=== PATIENT | male | born 1945 | race Caucasian/White ===

== ENCOUNTER 2023-10-31 13:28 | Emergency (ER) | payer OTHER ==
[2023-10-31 14:37] LABS: Absolute Lymphocytes (CBC) 0.4 K/uL (0.7-4.9); Absolute Monocytes 1.4 K/uL (0.1-1.3); Absolute Neutrophil 6.4 K/uL (1.8-8.0); Basophils % 0.4 % (0-1.3); Eosinophils % 0.1 % (0-4.4); Hematocrit 45.1 % (39.6-49.0); Hemoglobin 14.7 g/dL (13.6-17.9); Lymphocytes % 5.2 % (15.3-44.8); MCH 29.6 pg (27.0-35.0); MCHC 32.6 g/dL (32.0-36.0); MCV 90.7 fL (80-100); MPV 8.1 fL (7.6-11.3); Monocytes % 16.7 % (3.3-12.3); Neutrophils % 77.6 % (41.7-73.7); Nucleated Red Blood Cells % 0.1 % (0-0); Platelets 160 thou/uL (152-406); RBC Red Blood Cell Count 4.97 M/uL (4.33-5.43); Red Cell Distribution Width 15.3 % (12.1-15.2)
[2023-10-31 14:53] LABS: Albumin 3.1 g/dL (3.4-5.0); Albumin/Globulin Ratio 0.8 (1.1-1.8); Anion Gap 7.4 mEq/L (5.0-15.0); Bilirubin Total 0.4 mg/dL (0.2-1.0); Potassium 4.4 mEq/L (3.5-5.1); Protein, Total 7.1 g/dL (6.4-8.2)
[2023-10-31 14:54] LABS: PTT, Activated Partial Thromb 31.1 SECONDS (24.3-36.9); Protime INR 1.19
--- NOTE | 2023-10-31 15:19 | RAD REPORT ---
EXAM DESCRIPTION: Ovidio Single View10/31/2023 2:45 pm CLINICAL HISTORY: Cough COMPARISON: 2011 FINDINGS: The lungs appear clear of acute infiltrate. The heart is mildly enlarged. Pacemaker leads in place IMPRESSION: No acute abnormalities displayed
[2023-10-31] MEDS ORDERED: LEVALBUTEROL 1.25 MG/3 ML NEB ONE (16:10)
[2023-10-31 16:19] LABS: SARS-CoV-2 Antigen CONTROL BLUE LINE VIS/BG OK
[2023-10-31 16:20] LABS: SARS-CoV-2 Antigen Rapid Res Positive (Negative)
--- NOTE | 2023-10-31 16:35 | ER ---
Nurse's Notes [facility] Name: Himanshu Hayward Age: 78 yrs Sex: Male : 1945 Arrival Date: 10/31/2023 Time: 13:28 Bed 6 Private MD: Diagnosis: SARS-associated coronavirus as the cause of diseases classified elsewhere;COPD/ Chronic obstructive pulmonary disease with (acute) exacerbation Presentation: 10/30 13:33 Chief complaint: Patient states: Cough, congestion, fever for 1 week. Sent by NH for ll1 further evaluation. Coronavirus screen: Client denies travel out of the [place] in the last 14 days. Ebola Screen: Patient denies travel to an Ebola-affected area in the 21 days before illness onset. Initial Sepsis Screen: Does the patient meet any 2 criteria? No. Patient's initial sepsis screen is negative. Does the patient have a suspected source of infection? No. Patient's initial sepsis screen is negative. Risk Assessment: Do you want to hurt yourself or someone else? Patient reports no desire to harm self or others. Onset of symptoms was October 26, 2023. 13:33 Method Of Arrival: Ambulatory 1 13:33 Acuity: SJ 3 ll1 Triage Assessment: 13:41 General: Appears uncomfortable, Behavior is calm, cooperative, appropriate for age. ll1 General: Reports fever for fatigue for. Pain: Complains of pain in chest Pain currently is 7 out of 10 on a pain scale. Quality of pain is described as aching. EENT: Reports nasal congestion. Respiratory: Reports cough that is pain with cough. Historical: - Allergies: 13:33 Rho(D) immune globulin; ll1 13:33 Celecoxib; ll1 - PMHx: 13:33 Hypercholesterolemia; Hypothyroidism; ll1 15:45 COPD; aa5 - Immunization history:: Adult Immunizations up to date. - Infectious Disease History:: Denies. - Social history:: Smoking status: Patient denies any tobacco usage or history of. - Family history:: not pertinent. - Hospitalizations: : No recent hospitalization is reported. Screenin:00 [facility] ED Fall Risk Assessment (Adult) History of falling in the last 3 months, aa5 including since admission No falls in past 3 months (0 pts) Confusion or Disorientation No (0 pts) Intoxicated or Sedated No (0 pts) Impaired Gait No (0 pts) Mobility Assist Device Used No (0 pt) Altered Elimination No (0 pt) Score/Fall Risk Level 0 - 2 = Low Risk Oriented to surroundings, Maintained a safe environment, Educated pt \T\ family on fall prevention, incl call for assistance when getting out of bed. Abuse screen: Denies threats or abuse. Nutritional screening: No deficits noted. Tuberculosis screening: No symptoms or risk factors identified. Assessment: 14:00 General: Appears comfortable, Behavior is calm, cooperative. Pain: Denies pain. Neuro: aa5 Level of Consciousness is awake, alert, obeys commands, Oriented to person, place, time, situation. Cardiovascular: Heart tones S1 S2 present Rhythm is regular. Respiratory: Reports shortness of breath and cough/congestion Airway is patent Respiratory effort is even, unlabored, Respiratory pattern is regular, symmetrical, Breath sounds are clear bilaterally. GI: Abdomen is round. : No signs and/or symptoms were reported regarding the genitourinary system. EENT: Hearing aids noted . Reports nasal congestion. Derm: Skin is pink, warm \T\ dry. Musculoskeletal: Range of motion: intact in all extremities. 15:45 Reassessment: Patient is alert, oriented x 3, equal unlabored respirations, skin aa5 warm/dry/pink. 15:46 Reassessment: MD was notified of lowered O2 sat and current O2 sat via 2 L NC. . aa5 16:15 Reassessment: Patient is alert, oriented x 3, equal unlabored respirations, skin aa5 warm/dry/pink. Vital Signs: 13:33 BP 144 / 58; Pulse 96; Resp 22; Temp 98; Pulse Ox 94% ; Weight 121.56 kg; Height 6 ft. ll1 0 in. ; Pain 7/10; 15:45 Pulse Ox 89% on R/A; aa5 15:46 Pulse Ox 96% on 2 lpm NC; aa5 17:00 BP 138 / 60; Pulse 84; Resp 20; Temp 97.9; Pulse Ox 92% on R/A; ph 13:33 Body Mass Index 36.35 (121.56 kg, 182.88 cm) ll1 13:33 Pain Scale: Adult ll1 ED Course: 13:30 Patient arrived in ED. mg5 13:32 Federico Laurent MD is Attending Physician. rn 13:33 Arm band placed on. ll1 13:37 Triage completed. ll1 14:14 Radha Soliz, RN is Primary Nurse. aa5 14:23 Inserted saline lock: 20 gauge in right antecubital area, using aseptic technique. aa5 14:25 Initial lab(s) drawn, by me, sent to lab. First set of blood cultures drawn by me. aa5 14:30 Patient has correct armband on for positive identification. Bed in low position. Call ph light in reach. Side rails up X2. Client placed on continuous cardiac and pulse oximetry monitoring. NIBP monitoring applied. monitoring tech on. Door closed. Noise minimized. Warm blanket given. 14:47 XRAY Chest (1 view) In Process Unspecified. EDMS 15:31 COVID swab sent to lab. Flu and/or RSV swab sent to lab. ll1 15:31 Second set of blood cultures drawn by ED staff. aa5 17:10 No provider procedures requiring assistance completed. IV discontinued, intact, ph bleeding controlled, No redness/swelling at site. Pressure dressing applied. Administered Medications: 16:15 Drug: Levalbuterol Inhalation 1.25 mg Inhalation once Route: Inhalation; aa5 16:30 Follow up: Response: No adverse reaction ph 16:57 Drug: MethylPrednisoLONE IVP 125 mg IVP once Route: IVP; Site: left antecubital; ph 17:10 Follow up: Response: No adverse reaction; Medication administered at discharge. ph Medication: 17:10 VIS not applicable for this client. ph Outcome: 16:34 Discharge ordered by MD. rn 17:10 Discharged to home ambulatory, ph 17:10 Condition: good 17:10 Discharge instructions given to patient, Instructed on discharge instructions, follow up and referral plans. medication usage, Demonstrated understanding of instructions, follow-up care, medications, Prescriptions given X 2, 17:11 Patient left the ED. ph Signatures: Dispatcher [employer] EDMS Federico Laurent MD MD rn Calderon, Audri, RN RN aa5 Michelle Torrez RN RN ph Shelly Cisse RN RN ll1 Nay Claros RN RN [email or web address] Roro Galo mg5 Corrections: (The following items were deleted from the chart) 15:52 14:23 Inserted saline lock: 18 gauge in right antecubital area, using aseptic aa5 technique. Blood collected. IV is patent, with fluids infusing freely, with good blood return, Flushed right antecubital kb3 15:54 14:00 EENT: Reports nasal congestion aa5 aa5 16:03 15:30 Inserted saline lock: 22 gauge in left antecubital area, using aseptic technique. kb3 Blood collected. IV is intact, with fluids infusing freely, labeled with time/date of insertion. Flushed left antecubital saline lock With 10 ml NS ll1
--- NOTE | 2023-10-31 16:35 | EDPHYS ---
Physician Documentation [facility] Name: Himanshu Hayward Age: 78 yrs Sex: Male : 1945 Arrival Date: 10/31/2023 Time: 13:28 Bed 6 Private MD: ED Physician Federico Laurent HPI: 10/30 14:39 This 78 yrs old Male presents to ER via Ambulatory with complaints of Fever. rn 14:39 The patient reports fever, that was measured at 101 degrees Fahrenheit. Onset: The rn symptoms/episode began/occurred 1 week(s) ago. Modifying factors: there are no obvious modifying factors. Severity of symptoms: At their worst the symptoms were mild in the emergency department the symptoms are unchanged. The patient has not experienced similar symptoms in the past. Patient reports fever for 1 week. Associated with congestion and cough. No vomiting or diarrhea. No abdominal pain. No chest pain.. Historical: - Allergies: 13:33 Rho(D) immune globulin; ll1 13:33 Celecoxib; ll1 - PMHx: 13:33 Hypercholesterolemia; Hypothyroidism; ll1 15:45 COPD; aa5 - Immunization history:: Adult Immunizations up to date. - Infectious Disease History:: Denies. - Social history:: Smoking status: Patient denies any tobacco usage or history of. - Family history:: not pertinent. - Hospitalizations: : No recent hospitalization is reported. ROS: 14:39 Constitutional: Positive for fever ENT: Positive congestion and cough Neck: Negative rn for injury, pain, and swelling, Cardiovascular: Negative for chest pain, palpitations, and edema, Respiratory: Positive for cough, reports mild shortness of breath Abdomen/GI: Negative for abdominal pain, nausea, vomiting, diarrhea, and constipation, MS/Extremity: Negative for injury and deformity, Skin: Negative for injury, rash, and discoloration, Neuro: Negative for headache, weakness, numbness, tingling, and seizure, Exam: 14:39 Constitutional: This is a well developed, well nourished patient who is awake, alert, rn and in no acute distress. ENT: No stridor Cardiovascular: Regular rate and rhythm. No pulse deficits. Respiratory: Mild tachypnea Abdomen/GI: Soft, non-tender Neuro: Awake and alert, GCS 15 15:22 ECG was reviewed by the Attending Physician. rn Vital Signs: 13:33 BP 144 / 58; Pulse 96; Resp 22; Temp 98; Pulse Ox 94% ; Weight 121.56 kg; Height 6 ft. ll1 0 in. ; Pain 7/10; 15:45 Pulse Ox 89% on R/A; aa5 15:46 Pulse Ox 96% on 2 lpm NC; aa5 17:00 BP 138 / 60; Pulse 84; Resp 20; Temp 97.9; Pulse Ox 92% on R/A; ph 13:33 Body Mass Index 36.35 (121.56 kg, 182.88 cm) ll1 13:33 Pain Scale: Adult ll1 MDM: 13:32 Patient medically screened. rn 16:33 Differential diagnosis: viral Infection, bacterial infection, URI, pneumonia. Data rn reviewed: vital signs, nurses notes, lab test result(s), radiologic studies, plain films, and as a result, I will discharge patient. Consideration of Admission/Observation Escalation of care including admission/observation considered. Admission considered due to age and COPD. Patient states feels fine and does not feel short of breath. He states he was really here for fever control. States does not have Tylenol at home. Will discharge home with steroids for COPD and recommend picking up Tylenol at the pharmacy. Return precautions given. Care significantly affected by the following chronic conditions: Chronic Obstructive Pulmonary Disease. Counseling: I had a detailed discussion with the patient and/or guardian regarding the historical points, exam findings, and any diagnostic results supporting the discharge/admit diagnosis, lab results, radiology results, the need for outpatient follow up, to return to the emergency department if symptoms worsen or persist or if there are any questions or concerns that arise at home. ED course: I have personally reviewed all of the results, including but not limited to blood tests and imaging deemed necessary to safely discharge this patient at this time. All results given to and printed out for patient. I personally went over all the results with the patient and answered all questions. Patient will follow-up with PCP and or specialist as discussed. Return precautions given and understood.. 10/30 13:42 Order name: SARS RAPID; Complete Time: 16:30 rn 10/30 13:42 Order name: Flu; Complete Time: 16:30 rn 10/30 13:42 Order name: Blood Culture Adult (2) rn 10/30 13:42 Order name: CBC with Diff; Complete Time: 15:12 rn 10/30 13:42 Order name: CMP; Complete Time: 15:12 rn 10/30 13:42 Order name: Lactate w/ 2H reflex if indic.; Complete Time: 15:12 rn 10/30 13:42 Order name: Protime (+inr); Complete Time: 15:12 rn 10/30 13:42 Order name: Ptt, Activated; Complete Time: 15:12 rn 10/30 13:42 Order name: XRAY Chest (1 view); Complete Time: 15:21 rn 10/30 13:42 Order name: EKG; Complete Time: 13:43 rn 10/30 13:42 Order name: Accucheck; Complete Time: 14:57 rn 10/30 13:42 Order name: Cardiac monitoring; Complete Time: 14:27 rn 10/30 13:42 Order name: EKG - Nurse/Tech; Complete Time: 14:57 rn 10/30 13:42 Order name: IV Saline Lock - Large Bore; Complete Time: 14:27 rn 10/30 13:42 Order name: Labs collected and sent; Complete Time: 14:27 rn 10/30 13:42 Order name: O2 Per Protocol; Complete Time: 14:27 rn 10/30 13:42 Order name: O2 Sat Monitoring; Complete Time: 14:28 rn 10/30 13:42 Order name: Vital Signs; Complete Time: 14:28 rn EC:22 Rate is 85 beats/min. Rhythm is regular. QRS [place] is Normal. UT interval is prolonged. rn QRS interval is prolonged at 162 msec. QT interval is normal. No Q waves. T waves are Normal. No ST changes noted. Clinical impression: NSR w/ Non-specific ST/T Changes and 1st degree heart block. Interpreted by me. Reviewed by me. Administered Medications: 16:15 Drug: Levalbuterol Inhalation 1.25 mg Inhalation once Route: Inhalation; aa5 16:30 Follow up: Response: No adverse reaction ph 16:57 Drug: MethylPrednisoLONE IVP 125 mg IVP once Route: IVP; Site: left antecubital; ph 17:10 Follow up: Response: No adverse reaction; Medication administered at discharge. ph Disposition Summary: 10/31/23 16:34 Discharge Ordered Notes: Location: Home rn Problem: new rn Symptoms: have improved rn Condition: Stable rn Diagnosis - SARS-associated coronavirus as the cause of diseases classified elsewhere rn - COPD/ Chronic obstructive pulmonary disease with (acute) exacerbation rn Followup: rn - With: Private Physician - When: As needed - Reason: Recheck today's complaints, Re-evaluation by your physician Discharge Instructions: - Discharge Summary Sheet rn - Chronic Obstructive Pulmonary Disease, [id number] rn - COVID-19 rn - 10 Things You Can Do to Manage Your COVID-19 Symptoms at Home - [facility] (11/10/2020) rn - Viral Illness, Adult rn Forms: - Medication Reconciliation Form rn - Antibiotic tele rn - Prescription Opioid Use rn - Patient Portal Instructions rn - Leadership Thank You Letter rn Prescriptions: - Prednisone 20 mg Oral Tablet - take 3 tablets ORAL route once daily for 5 days; 15 tablet; Refills: 0, Product rn Selection Permitted - Zithromax Z-Robert 250 mg Oral Tablet - take 1 tablet ORAL route as directed for 5 days Day 1 - take two (2) tablets rn one time. Day 2, 3, 4 , 5 take one (1) tablet once daily.; 6 tablet; Refills: 0, Product Selection Permitted Signatures: Dispatcher [employer] EDMS Federico Laurent MD MD rn Calderon, Audri, RN RN aa5 Michelle Torrez RN RN ph Shelly Cisse, RN RN ll1 Corrections: (The following items were deleted from the chart) 13:42 13:42 SARS-COV-2 Antigen Rapid+I.LAB.BRZ ordered. EDMS EDMS 13:42 13:42 Influenza Screen (A \T\ B)+BA.LAB.BRZ ordered. EDMS EDMS 13:43 13:43 Chest Single View+RAD.RAD.BRZ ordered. EDMS EDMS 13:43 13:43 BLOOD CULTURE*+BA.LAB.BRZ ordered. EDMS EDMS 13:43 13:43 CBC+H.LAB.BRZ ordered. EDMS EDMS 13:43 13:43 COMPREHENSIVE METABOLIC PANEL+C.LAB.BRZ ordered. EDMS EDMS 13:43 13:43 LACTATE+C.LAB.BRZ ordered. EDMS EDMS 13:43 13:43 PROTIME (+INR)+COAG.LAB.BRZ ordered. EDMS EDMS 13:43 13:43 PTT, ACTIVATED+COAG.LAB.BRZ ordered. EDMS EDMS
[2023-10-31] MEDS ORDERED: METHYLPREDNISOLONE 125 MG INJ ONE (16:52)
[2023-10-31 17:40] VITALS: BP 144/58; TEMP 98; O2SAT 96
--- NOTE | 2023-11-02 10:33 | EKG ---
Test Date: 2023-10-31 Test Time: 14:52:22 [employer]: PH MEASUREMENT RESULTS: Intervals: Rate: 85 HI: 228 QRSD: 162 QT: 406 QTc: 483 [place]: P: HI: 228 QRS: 144 T: 32 INTERPRETIVE STATEMENTS: Sinus rhythm with 1st degree AV block Right bundle branch block Abnormal ECG Compared to ECG 11/06/2011 12:29:05 First degree AV block now present Right bundle-branch block now present Sinus tachycardia no longer present Electronically Signed On 11-02-23 10:31:23 CDT by Eitan Benson
== END 2023-10-31 17:11 | disposition home or self-care (01) ==
LOC: ER 13:28
DX: U07.1 COVID-19 (principal); J44.1 Chronic obstructive pulmonary disease with (acute) exacerbation
CPT/HCPCS: 93005; 87040 ×2; 85025; 36415; 85610; 83605; 85730; 80053; 87804 ×2; 71045; 96374; 99285; 87811; J7614; J2919

== ENCOUNTER 2024-08-06 10:41 | Inpatient (IN) | payer OTHER ==
[2024-08-06 11:17] LABS: Absolute Eosinophils 0.1 K/uL (0-0.5); Absolute Lymphocytes (CBC) 1.4 K/uL (0.7-4.9); Absolute Monocytes 1.5 K/uL (0.1-1.3); Absolute Neutrophil 9.3 K/uL (1.8-8.0); Basophils % 0.4 % (0-1.3); Eosinophils % 0.6 % (0-4.4); Hematocrit 48.7 % (39.6-49.0); Hemoglobin 16.5 g/dL (13.6-17.9); MCH 30.6 pg (27.0-35.0); MCHC 33.9 g/dL (32.0-36.0); MCV 90.3 fL (80-100); MPV 8.1 fL (7.6-11.3); Monocytes % 12.4 % (3.3-12.3); Neutrophils % 75.6 % (41.7-73.7); Nucleated Red Blood Cells % 0.1 % (0-0); Platelets 191 thou/uL (152-406); RBC Red Blood Cell Count 5.39 M/uL (4.33-5.43)
[2024-08-06 11:38] LABS: Albumin 3.3 g/dL (3.4-5.0); Albumin/Globulin Ratio 0.9 (1.1-1.8); Anion Gap 7.1 mEq/L (5.0-15.0); Bilirubin Direct 0.2 mg/dL (0-0.2); Bilirubin Indirect, Calculated 0.4 mg/dL (0.2-0.8); Bilirubin Total 0.6 mg/dL (0.2-1.0); Globulin 3.8 g/dL (2.3-3.5); Magnesium 1.9 mg/dL (1.6-2.4); Potassium 4.1 mEq/L (3.5-5.1); Protein, Total 7.1 g/dL (6.4-8.2); Thyroid Stimulating Hormone 1.05 uIU/mL (0.358-3.740); Troponin High Sensitivity 8.1 pg/mL (<58.9)
--- NOTE | 2024-08-06 12:19 | RAD REPORT ---
EXAM: CT brain without contrast HISTORY: TRAUMA COMPARISON: None TECHNIQUE: Multiple contiguous axial images were obtained and a CT of the brain without contrast. Sag ittal and coronal reformats were performed. FINDINGS: No evidence of hydrocephalus, intracranial hemorrhage, or extra-axial fluid collection. Left opercular encephalomalacia, suggesting sequelae of remote ischemia. The brain is otherwise princess l in morphology. The calvarium is intact. The visualized paranasal sinuses and mastoid air cells are essentially clear . IMPRESSION: No evidence of acute intracranial abnormality. Left opercular encephalomalacia suggesting sequelae of remote ischemia. EXAM: CT of the cervical spine without contrast HISTORY: TRAUMA COMPARISON: None TECHNIQUE: Multiple contiguous axial images were obtained in a CT of the cervical spine without contr ast. Sagittal and coronal reformats were performed. FINDINGS: The vertebral bodies demonstrate normal height and alignment. No evidence of acute fracture or subluxation.. No degenerative changes are present. No prevertebral soft tissue swelling is seen. The posterior facets are well aligned. Normal alignment of the skull base with the cervical spine is seen. The lung apices are unremarkable. IMPRESSION: No evidence of acute osseous abnormality of the cervical spine.
[2024-08-06 12:44] LABS: D-Dimer 2.068 FEUug/mL (0-0.500); PT Prothrombin Time 12.8 SECONDS (10-13.0); Protime INR 1.13
--- NOTE | 2024-08-06 13:06 | RAD REPORT ---
EXAMINATION: XR Elbow Right 2 View CLINICAL INDICATION: Male, 78 years old. PAIN RIGHT TECHNIQUE: 2 view radiographs of the right elbow were obtained. COMPARISON: No prior exam. FINDINGS: No evidence of fracture or dislocation. Normal alignment. No joint effusion. Mild degenerat maria c changes of the elbow joint. Spurring at the olecranon suggests long-standing sequelae of enthesopathy at the triceps insertion. No suspicious focal bone lesion. Soft tissues are unremarkable . IMPRESSION: No acute osseous abnormalities. Findings as above.
--- NOTE | 2024-08-06 13:07 | RAD REPORT ---
EXAMINATION: ONE VIEW CHEST XR CLINICAL INDICATION: Male, 78 years old.,CHEST PAIN TECHNIQUE: Frontal chest projection is submitted. Examination is limited by patient positioning and t echnique. COMPARISON: 10/31/2023 FINDINGS: The lungs are well inflated and clear. No pneumothorax or sizable effusion. The heart is normal in s ize. 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 Left chest wall pacer in place. IMPRESSION: No acute intrathoracic abnormalities.
--- NOTE | 2024-08-06 13:15 | RAD REPORT ---
EXAMINATION: Ribs Left INDICATION: PAIN COMPARISON: None TECHNIQUE: Frontal and multiple oblique views of the left rib cage. FINDINGS: Included portions of the chest reveal clear lungs. There is no effusion or pneumothorax. Mediastinal contours are within normal limits. No displaced rib fracture is identified. No suspicious focal osseous lesion.. IMPRESSION: No acute fractures are identified radiographically..
--- NOTE | 2024-08-06 13:16 | RAD REPORT ---
EXAMINATION: XR Lumbar Spine 3 Views CLINICAL INDICATION: Male, 78 years old. [facility] MAIN PAIN Bed Name: 13 TECHNIQUE: AP, lateral, focused lateral lumbosacral views of the lumbar spine were obtained. COMPARISON: No prior exam. FINDINGS: For purposes of this dictation, it is assumed that there are 5 lumbar type vertebral bodies. ALIGNMENT: Minimal multilevel spondylolisthesis, with up to 3 mm anterolisthesis of L4 over L5. BONES: Vertebral bodies are normal in height. No aggressive osseous lesions. Mild to moderate degener ative changes most notably along the L4-5 and L5-S1 facet articulations. DISCS: Disc heights are maintained. IMPRESSION: No acute lumbar spine abnormality. Degenerative changes as above.
--- NOTE | 2024-08-06 13:18 | RAD REPORT ---
EXAMINATION: XR Sacrum And Coccyx HISTORY: PAIN TECHNIQUE: 2 radiographic views of the sacrum and coccyx. FINDINGS: Mild cortical buckling along the fifth sacral segment could represent a buckled fracture.. No focal s uspicious osseous lesion. Symphysis pubis and bilateral SI joint degenerative changes. Lower lumbar spondylotic changes. Soft tissues are unremarkable.
--- NOTE | 2024-08-06 14:03 | RAD REPORT ---
EXAMINATION: CTA CHEST PE CLINICAL INDICATION: +ddimer, dyspne TECHNIQUE: This examination was performed according to an angiographic protocol with 3D post-processi ng. This involves 3D reconstructions, MIPs, volume rendered images and/or shaded surface rendering. One or more of the following dose reduction techniques were used: Automated exposure control, adjustm ent of the mA and/or kV according to patient size, and/or iterative reconstruction. Unless otherwise specified, incidental findings do not require dedicated imaging follow-up. COMPARISON: No prior exam. FINDINGS: PULMONARY ARTERIES: Normal caliber. No evidence of pulmonary emboli to the subsegmental level. THORACIC AORTA: Normal caliber and configuration. LUNGS: No evidence of airspace or interstitial process. No nodules. Mild diffuse COPD. PLEURA: No pleural effusion. No pneumothorax. MEDIASTINUM AND LYMPH NODES: No mediastinal mass or fluid collection. Normal size mediastinal, hilar, and axillary lymph nodes. OSSEOUS STRUCTURES AND CHEST WALL: Intact. Sternotomy wires. UPPER ABDOMEN: Small hiatal hernia. Cholelithiasis. IMPRESSION: No evidence of pulmonary emboli to the subsegmental level. Mild diffuse COPD. Cholelithiasis.
[2024-08-06] MEDS ORDERED: HYDROCODONE/APAP 7.5/325 MG TAB ONE (14:10)
--- NOTE | 2024-08-06 14:12 | ER ---
Nurse's Notes [facility] Name: Himanshu Hayward Age: 78 yrs Sex: Male : 1945 Arrival Date: 08/06/2024 Time: 10:41 Bed 13 Private MD: Diagnosis: Syncope Presentation: 08/06 10:48 Chief complaint: EMS states: they were toned out for syncope x4 within 24hrs. EMS kc6 reports upon arrival he was in 1st Degree Heart Block with a rate ranging from 100-300bpm, one syncopal episode with EMS. Coronavirus screen: At this time, the client does not indicate any symptoms associated with coronavirus-19. Ebola Screen: No symptoms or risks identified at this time. Initial Sepsis Screen: Does the patient meet any 2 criteria? No. Patient's initial sepsis screen is negative. Does the patient have a suspected source of infection? No. Patient's initial sepsis screen is negative. Risk Assessment: Do you want to hurt yourself or someone else? Patient reports no desire to harm self or others. Onset of symptoms was August 06, 2024. Care prior to arrival: Medication(s) given: Normal saline infusion, 500 mL, IV initiated. 20 GA, in the left hand, Glucose check: 114 Oxygen administered. via a non-rebreather mask. Activity prior to arrival: loss of consciousness. 10:48 Method Of Arrival: EMS: [place] [id number] 10:48 Acuity: [place] 2 [facility] Historical: - Allergies: 10:51 Celecoxib; kc6 10:51 Rho(D) immune globulin; kc6 - PMHx: 10:51 COPD; Hypercholesterolemia; Hypothyroidism; Atrial fibrillation; Diabetes mellitus; kc6 Myocardial infarction; enlarged prostate; - PSHx: 10:51 Coronary artery bypass graft; kc6 - Immunization history:: Adult Immunizations up to date. - Infectious Disease History:: Denies. - Social history:: Smoking status: Patient denies any tobacco usage or history of. Screenin:53 [facility] ED Fall Risk Assessment (Adult) History of falling in the last 3 months, [facility] including since admission Yes- physiologic fall (2 pts) Confusion or Disorientation No (0 pts) Intoxicated or Sedated No (0 pts) Impaired Gait No (0 pts) Mobility Assist Device Used No (0 pt) Altered Elimination No (0 pt) Score/Fall Risk Level 0 - 2 = Low Risk Oriented to surroundings, Maintained a safe environment, Educated pt \\T\\ family on fall prevention, incl call for assistance when getting out of bed. Abuse screen: Denies threats or abuse. Denies injuries from another. Nutritional screening: No deficits noted. Tuberculosis screening: No symptoms or risk factors identified. Assessment: 10:48 Reassessment: pt placed on pacer pads, EKG machine, and CCM. Radha, RN, Janet, RN \\T\\ kc6 Dr. Murphy at bedside. 10:53 General: Appears in no apparent distress. comfortable, well groomed, well developed, kc6 Behavior is cooperative, appropriate for age, anxious. Pain: Complains of pain in mid-sternal area and right lateral anterior chest Pain currently is 3 out of 10 on a pain scale. Neuro: Level of Consciousness is awake, alert, obeys commands, Oriented to person, place, time, situation, Appropriate for age. Cardiovascular: Reports chest pain, lightheadedness, palpitations, syncope, Heart tones S1 S2 present Capillary refill < 3 seconds Rhythm is sinus rhythm with 1st degree heart block. Respiratory: Airway is patent Trachea midline Respiratory effort is even, unlabored, Respiratory pattern is regular, symmetrical. GI: No signs and/or symptoms were reported involving the gastrointestinal system. : No signs and/or symptoms were reported regarding the genitourinary system. EENT: No signs and/or symptoms were reported regarding the EENT system. Derm: No signs and/or symptoms reported regarding the dermatologic system. Skin is intact, is healthy with good turgor, Skin is pink, warm \\T\\ dry. Musculoskeletal: No signs and/or symptoms reported regarding the musculoskeletal system. Circulation, motion, and sensation intact. Range of motion: intact in all extremities. 10:57 Reassessment: Spoke to [facility] at [phone] to request Cardiac pacemaker aa5 interrogation, local ict sales representative to call backMD aware.. 11:03 Reassessment: Received call back from pacemaker ict sales representative and states ETA is 1 hr. .aa5 11:09 Reassessment: pt gives verbal permission for cardioversion and CPR. pt states, "I don't kc6 want to be put on one of them machines." Dr. Murphy made aware. 11:48 Reassessment: Patient appears in no apparent distress at this time. No changes from kc6 previously documented assessment. Patient and/or family updated on plan of care and expected duration. Pain level reassessed. Patient is alert, oriented x 3, equal unlabored respirations, skin warm/dry/pink. Patient states feeling better. Patient states symptoms have improved. 12:40 Reassessment: [employer] Attendant at bedside interrogating pacemaker. aa5 12:45 Reassessment: Patient appears in no apparent distress at this time. No changes from kc6 previously documented assessment. Patient and/or family updated on plan of care and expected duration. Pain level reassessed. Patient is alert, oriented x 3, equal unlabored respirations, skin warm/dry/pink. 13:43 Reassessment: Patient appears in no apparent distress at this time. No changes from kc6 previously documented assessment. Patient and/or family updated on plan of care and expected duration. Pain level reassessed. Patient is alert, oriented x 3, equal unlabored respirations, skin warm/dry/pink. 14:36 Reassessment: Patient appears in no apparent distress at this time. No changes from kc6 previously documented assessment. Patient and/or family updated on plan of care and expected duration. Pain level reassessed. Patient is alert, oriented x 3, equal unlabored respirations, skin warm/dry/pink. Vital Signs: 10:48 BP 111 / 60; Pulse 81; Resp 18 S; Temp 97.8(O); Pulse Ox 96% on R/A; Height 6 ft. 0 in. kc6 (R); Pain 3/10; 11:06 BP 107 / 52; Pulse 74; Resp 16 S; Pulse Ox 98% on R/A; kc6 12:45 BP 138 / 81; Pulse 78; Resp 18 S; Pulse Ox 96% on R/A; kc6 14:36 BP 118 / 67; Pulse 81; Resp 18 S; Pulse Ox 97% on R/A; kc6 17:15 BP 101 / 56 LA Supine (auto/reg); Pulse 85; kc6 17:15 BP 97 / 58 LA Sitting (auto/reg); Pulse 81; kc6 17:15 BP 74 / 47 LA Standing (auto/reg); Pulse 87; kc6 18:10 BP 103 / 55; Pulse 87; Resp 18 S; Pulse Ox 98% on R/A; kc6 10:48 Pain Scale: Adult kc ED Course: 10:44 Patient arrived in ED. eb 10:44 Stephen Murphy MD is Attending Physician. jr11 10:48 Aiyana Flores, IRIS is Primary Nurse. kc6 10:51 Triage completed. kc6 10:51 Arm band placed on. EKG completed in triage. Results shown to MD. kc6 10:52 Patient has correct armband on for positive identification. Placed in gown. Bed in low kc6 position. Call light in reach. Side rails up X2. quality assurance monitor body on. Pulse ox on. NIBP on. Door closed. Noise minimized. Lights dimmed. Warm blanket given. Pillow given. Verbal reassurance given. 10:53 Maintain EMS IV. Dressing intact. Good blood return noted. Site clean \\T\\ dry. Gauge \\T\\ nury 6 site: 20G LHAND. Flushed with 10 mL NS. Patient maintains SpO2 saturation greater than 95% on room air. 10:53 Inserted saline lock: 18 gauge in right antecubital area, using aseptic technique. kc6 Blood collected. Flushed with 10 mL NS. 11:00 Initial lab(s) drawn, by me, sent to lab. kc6 12:04 XRAY Chest (1 view) In Process Unspecified. EDMS 12:04 Ribs Left XRAY In Process Unspecified. EDMS 12:06 CT Head C Spine In Process Unspecified. EDMS 12:10 Elbow Right 2 View XRAY In Process Unspecified. EDMS 12:10 Sacrum And Coccyx XRAY In Process Unspecified. EDMS 12:10 Lumbar Spine (3 Views) XRAY In Process Unspecified. EDMS 12:56 Pacemaker Interrogation completed and sent to Other [facility]. kc6 13:52 CT Chest For PE Angio In Process Unspecified. EDMS 14:11 Héctor Laurent MD is Hospitalizing Provider. jr11 15:41 No provider procedures requiring assistance completed. Patient admitted, IV remains in kc6 place. 17:15 Assisted to bedside commode. Repositioned patient. Linen changed. kc6 Administered Medications: 14:31 Drug: Hydrocodone-Acetaminophen PO (7.5 mg-325 mg) 1 tabs PO once Route: PO; kc 15:42 Follow up: Response: No adverse reaction; Pain is decreased; RASS: Alert and Calm (0) kc6 Medication: 15:42 VIS not applicable for this client. kc6 Point of Care Testing: Blood Glucose: 10:51 Blood Glucose: 114 mg/dL; kc6 Ranges: Outcome: 14:12 Decision to Hospitalize by Provider. jr11 15:41 Admitted to ER Hold. Please see [facility] for further documentation. kc6 15:41 Condition: stable 15:41 Instructed on the need for admit, 18:40 Patient left the ED. kc6 Signatures: Dispatcher [employer] EDMS Radha Soliz, RN RN aa5 Ora Bolanos Jose, MD MD jr11 Aiyana Flores RN RN kc6 Corrections: (The following items were deleted from the chart) 10:52 10:48 Care prior to arrival: Medication(s) given: Normal saline infusion, 500 mL, IV kc6 initiated. 20 GA, in the left hand, Oxygen administered. via a non-rebreather mask, kc6 13:09 10:57 Reassessment: Spoke to [facility] at [phone] to request Cardiac aa5 pacemaker interrogation, local ict sales representative to call back, aware.. aa5
--- NOTE | 2024-08-06 14:12 | EDPHYS ---
Physician Documentation [facility] Name: Himanshu Hayward Age: 78 yrs Sex: Male : 1945 Arrival Date: 08/06/2024 Time: 10:41 Bed 13 Private MD: ED Physician Stephen Murphy HPI: 08/06 11:14 Chief Complaint: Fainting episodes and rib pain. History of Present Illness: Himanshu Hayward, an 79-year-old male, presents after experiencing four fainting episodes in the past 24 hours. One of these episodes resulted in a fall, causing him to hit the back of his ribs, specifically on the left side. He reports chest pain that started when he fell this morning, rated as a 3 out of 10, and worsens with deep breaths. He also experiences tailbone pain and right elbow bruising from the falls. He has a history of a first-degree heart block, a pacemaker, atrial fibrillation, and a history of coronary artery bypass grafting. He reports not having any kidney problems or known allergies but mentions low thyroid and prostate problems, hypertension, and diabetes. He is unsure of his current medications, including blood thinners. He does not smoke and reports not having fever, nausea, or vomiting. He was not hypoxic during transport, and his heart rate fluctuated between 100 to 300 bpm but stabilized upon being laid flat. ROS otherwise negative. Review of Systems: - Cardiovascular: Fainting episodes, chest pain. - Musculoskeletal: Rib pain, tailbone pain, right elbow bruising. - Neurological: Fainting episodes. - Respiratory: Pain with deep breathing. - General: No fever, nausea, or vomiting. - ROS otherwise negative. . Historical: - Allergies: 10:51 Celecoxib; kc6 10:51 Rho(D) immune globulin; kc6 - PMHx: 10:51 COPD; Hypercholesterolemia; Hypothyroidism; Atrial fibrillation; Diabetes mellitus; kc6 Myocardial infarction; enlarged prostate; - PSHx: 10:51 Coronary artery bypass graft; kc6 - Immunization history:: Adult Immunizations up to date. - Infectious Disease History:: Denies. - Social history:: Smoking status: Patient denies any tobacco usage or history of. Exam: 11:14 Constitutional: This is a well developed, well nourished patient who is awake, alert, jr11 and in no acute distress. Head/Face: Normocephalic, atraumatic. Eyes: Extra-ocular motions intact. Lids and lashes normal. Conjunctiva and sclera are non-icteric and not injected. Cornea within normal limits. Periorbital areas with no swelling, redness, or edema. ENT: Nares patent. No nasal discharge, no septal abnormalities noted. Oropharynx with no redness, swelling, or masses, exudates, or evidence of obstruction, uvula midline. Mucous membranes moist. Chest/axilla: CTAB, TTP L lateral ribs, no crepitus Cardiovascular: Regular rate and rhythm with a normal S1 and S2. No gallops, murmurs, or rubs. Normal PMI, no JVD. No pulse deficits. Respiratory: Lungs have equal breath sounds bilaterally, clear to auscultation and percussion. No rales, rhonchi or wheezes noted. No increased work of breathing, no retractions or nasal flaring. MS/ Extremity: Pulses equal, no cyanosis. Neurovascular intact. Full, normal range of motion.exceot L elbow FROM painful Vital Signs: 10:48 BP 111 / 60; Pulse 81; Resp 18 S; Temp 97.8(O); Pulse Ox 96% on R/A; Height 6 ft. 0 in. kc6 (R); Pain 3/10; 11:06 BP 107 / 52; Pulse 74; Resp 16 S; Pulse Ox 98% on R/A; kc6 12:45 BP 138 / 81; Pulse 78; Resp 18 S; Pulse Ox 96% on R/A; kc6 14:36 BP 118 / 67; Pulse 81; Resp 18 S; Pulse Ox 97% on R/A; kc6 17:15 BP 101 / 56 LA Supine (auto/reg); Pulse 85; kc6 17:15 BP 97 / 58 LA Sitting (auto/reg); Pulse 81; kc6 17:15 BP 74 / 47 LA Standing (auto/reg); Pulse 87; kc6 18:10 BP 103 / 55; Pulse 87; Resp 18 S; Pulse Ox 98% on R/A; kc6 10:48 Pain Scale: Adult kc6 MDM: 10:47 Medical Screening Exam initiated jr11 11:14 Differential Diagnosis: Medical Decision Makin. Differential diagnosis includes: 1. Cardiac arrhythmia (possible atrial fibrillation with rapid ventricular response) 2. Orthostatic hypotension 3. Syncope due to pacemaker malfunction 4. Vasovagal syncope 5. Less likely but life-threatening: Myocardial infarction Plan: - Obtain EKG and monitor heart rhythm. - Consider pacemaker interrogation to assess function. - Evaluate for rib fractures or other trauma-related injuries. - Pain management for rib and tailbone pain. - Monitor vital signs and hydration status. - Consult cardiology for further management of arrhythmia and pacemaker issues. - Admit . ED course: EKG interpreted by me shows normal sinus rhythm, normal axis, prolonged CT 226 prolonged QTc at 501 otherwise right bundle branch morphology with no significant ST changes. mat maker interpreted by me shows normal sinus rhythm rate of 85. 14:11 ED course: CT head interpreted by me, no bleed, CTA interpreted by me, no clot . ED course: Spoke to Eliseo, will admit to Dr Laurent. 08/06 10:49 Order name: Basic Metabolic Panel; Complete Time: 12:00 [facility] 08/06 10:49 Order name: CBC with Diff; Complete Time: 11:32 08/06 10:49 Order name: D-Dimer; Complete Time: 13:25 08/06 10:49 Order name: LFT's; Complete Time: 12:00 [facility] 08/06 10:49 Order name: Magnesium; Complete Time: 12:00 [facility] 08/06 10:49 Order name: NT PRO-BNP; Complete Time: 12:00 08/06 10:49 Order name: PT-INR; Complete Time: 13:25 [facility] 08/06 10:49 Order name: Troponin HS; Complete Time: 12:00 08/06 10:49 Order name: TSH; Complete Time: 12:00 08/06 15:27 Order name: CBC with Automated Diff EDMS 08/06 15:27 Order name: CBC with Automated Diff EDMS 08/06 15:27 Order name: CBC with Automated Diff EDMS 08/06 15:27 Order name: CBC with Automated Diff EDMS 08/06 15:27 Order name: Comprehensive Metabolic Panel EDMS 08/06 15:27 Order name: Comprehensive Metabolic Panel EDMS 08/06 15:27 Order name: Comprehensive Metabolic Panel EDMS 08/06 15:27 Order name: Comprehensive Metabolic Panel EDMS 08/06 15:27 Order name: T4 Free [facility] 08/06 15:27 Order name: T4 Free [facility] 08/06 15:27 Order name: Thyroid Stimulating Hormone [facility] 08/06 15:27 Order name: Thyroid Stimulating Hormone [facility] 08/06 15:27 Order name: Troponin High Sensitivity [facility] 08/06 15:27 Order name: Troponin High Sensitivity; Complete Time: 18:05 [facility] 08/06 15:27 Order name: Troponin High Sensitivity [facility] 08/06 10:49 Order name: XRAY Chest (1 view); Complete Time: 13: 08/06 10:51 Order name: CT Head C Spine; Complete Time: 13: 08/06 10:51 Order name: Ribs Left XRAY; Complete Time: 13: 08/06 10:51 Order name: Elbow Right 2 View XRAY; Complete Time: 13:08/06 10:51 Order name: Sacrum And Coccyx XRAY; Complete Time: 13:08/06 10:51 Order name: Lumbar Spine (3 Views) XRAY; Complete Time: 13:08/06 13:26 Order name: CT Chest For PE Angio; Complete Time: 14:06 08/06 10:49 Order name: Cardiac monitoring; Complete Time: 10:08/06 10:49 Order name: Labs collected and sent; Complete Time: :08/06 10:49 Order name: O2 Per Protocol; Complete Time: :08/06 10:49 Order name: O2 Sat Monitoring; Complete Time: :08/06 10:55 Order name: Misc. Order: Interrogate Pacemaker; Complete Time: 12:56 08/06 11:20 Order name: Labs - recollect needed: blue and lavender tubes please; Complete Time: aa5 12:44 Administered Medications: 14:31 Drug: Hydrocodone-Acetaminophen PO (7.5 mg-325 mg) 1 tabs PO once Route: PO; kc6 15:42 Follow up: Response: No adverse reaction; Pain is decreased; RASS: Alert and Calm (0) kc6 Point of Care Testing: Blood Glucose: 10:51 Blood Glucose: 114 mg/dL; kc6 Ranges: Critical Glucose Levels:Adult <50 mg/dl or >400 mg/dl <40 mg/dl or >180 mg/dl Disposition Summary: 08/06/24 14:12 Hospitalization Ordered Notes: Hospitalization Status: Observation jr11 Provider: Héctor Laurent Location: Telemetry/MedSurg (observation) jr11 Condition: Stable jr11 Problem: new jr11 Symptoms: are unchanged jr11 Bed/Room Type: Standard [facility] Room Assignment: 210(08/06/24 17:34) eb Diagnosis - Syncope jr11 Forms: - Medication Reconciliation Form jr11 - SBAR form jr11 - Leadership Thank You Letter jr11 Signatures: Dispatcher [employer] EDMS Radha Soliz RN RN aa5 Ora Bolanos Jose, MD MD jr11 Aiyana Flores RN RN kc6 Corrections: (The following items were deleted from the chart) 10:50 10:50 BASIC METABOLIC PANEL+C.LAB.BRZ ordered. EDMS EDMS 10:50 10:50 CBC+H.LAB.BRZ ordered. EDMS EDMS 10:50 10:50 D-DIMER+COAG.LAB.BRZ ordered. EDMS EDMS 10:50 10:50 HEPATIC FUNCTION+C.LAB.BRZ ordered. EDMS EDMS 10:50 10:50 MAGNESIUM+C.LAB.BRZ ordered. EDMS EDMS 10:50 10:50 PROBNP+C.LAB.BRZ ordered. EDMS EDMS 10:50 10:50 PROTIME (+INR)+COAG.LAB.BRZ ordered. EDMS EDMS 10:50 10:50 Troponin High Sensitivity+C.LAB.BRZ ordered. EDMS EDMS 10:50 10:50 THYROID STIMULAT HORMONE+C.LAB.BRZ ordered. EDMS EDMS 10:50 10:50 Chest Single View+RAD.RAD.BRZ ordered. EDMS EDMS 10:52 10:52 Elbow Right 2 View+RAD.RAD.BRZ ordered. EDMS EDMS 10:52 10:52 Sacrum And Coccyx+RAD.RAD.BRZ ordered. EDMS EDMS 10:52 10:52 Lumbar Spine 3 Views+RAD.RAD.BRZ ordered. EDMS EDMS 13:27 13:27 Chest For PE Angio+CT.RAD.BRZ ordered. EDMS EDMS 17:34 14:12 jr11 eb
[2024-08-06] MEDS: NA CHLORIDE 0.9% 500 ML IV ONE (17:27)
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
[2024-08-06] MEDS ORDERED: NA CHLORIDE 0.9% 500 ML ONE (17:40)
[2024-08-06] MEDS ORDERED: NA CHLORIDE 0.9% 1,000 ML ONE (17:40)
[2024-08-06] MEDS: NA CHLORIDE 0.9% 1,000 ML IV SCH (17:49)
[2024-08-06] MEDS: HEPARIN 5000 UNIT/ML 1 ML VIAL SQ SCH (20:59)
[2024-08-06] MEDS: INSULIN GLARGINE 100 UNIT/ML SQ SCH (21:00)
[2024-08-07 03:41] VITALS: BMI 33.1
[2024-08-07] MEDS: HYDROCODONE/APAP 5/325 MG TAB PO PRN (03:47)
[2024-08-07 05:36] LABS: Absolute Eosinophils 0.1 K/uL (0-0.5); Absolute Lymphocytes (CBC) 1.4 K/uL (0.7-4.9); Absolute Monocytes 1.2 K/uL (0.1-1.3); Absolute Neutrophil 6.3 K/uL (1.8-8.0); Basophils % 0.5 % (0-1.3); Hematocrit 46.5 % (39.6-49.0); Hemoglobin 15.9 g/dL (13.6-17.9); Lymphocytes % 15.4 % (15.3-44.8); MCH 30.8 pg (27.0-35.0); MCHC 34.1 g/dL (32.0-36.0); MCV 90.3 fL (80-100); MPV 8.2 fL (7.6-11.3); Monocytes % 12.9 % (3.3-12.3); Neutrophils % 70.2 % (41.7-73.7); Nucleated Red Blood Cells % 0.1 % (0-0); Platelets 175 thou/uL (152-406); RBC Red Blood Cell Count 5.15 M/uL (4.33-5.43); Red Cell Distribution Width 14.3 % (12.1-15.2)
[2024-08-07 06:09] LABS: Albumin 2.9 g/dL (3.4-5.0); Albumin/Globulin Ratio 0.8 (1.1-1.8); Anion Gap 10.9 mEq/L (5.0-15.0); Bilirubin Total 0.6 mg/dL (0.2-1.0); Globulin 3.5 g/dL (2.3-3.5); Potassium 3.9 mEq/L (3.5-5.1); Protein, Total 6.4 g/dL (6.4-8.2); Thyroid Stimulating Hormone 0.982 uIU/mL (0.358-3.740)
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
[2024-08-07] MEDS: MELOXICAM 7.5 MG TAB PO SCH (21:24)
[2024-08-07] MEDS: DULOXETINE 20 MG CAP PO SCH (21:24)
[2024-08-07] MEDS: TAMSULOSIN 0.4 MG SR CAP PO SCH (21:24)
[2024-08-07] MEDS: TAMSULOSIN 0.4 MG SR CAP PO ONE (22:18)
[2024-08-07] MEDS: CYCLOBENZAPRINE 10 MG TAB PO PRN (22:20)
[2024-08-08 00:45] VITALS: O2SAT 95
[2024-08-08 06:10] LABS: Absolute Eosinophils 0.2 K/uL (0-0.5); Absolute Lymphocytes (CBC) 1.2 K/uL (0.7-4.9); Absolute Neutrophil 4.9 K/uL (1.8-8.0); Basophils % 0.7 % (0-1.3); Eosinophils % 2.2 % (0-4.4); Hematocrit 46.9 % (39.6-49.0); Hemoglobin 15.9 g/dL (13.6-17.9); Lymphocytes % 16.7 % (15.3-44.8); MCH 30.4 pg (27.0-35.0); MCHC 33.9 g/dL (32.0-36.0); MCV 89.7 fL (80-100); MPV 7.6 fL (7.6-11.3); Monocytes % 13.2 % (3.3-12.3); Neutrophils % 67.2 % (41.7-73.7); Nucleated Red Blood Cells % 0.1 % (0-0); Platelets 181 thou/uL (152-406); RBC Red Blood Cell Count 5.24 M/uL (4.33-5.43); Red Cell Distribution Width 13.8 % (12.1-15.2)
[2024-08-08 06:45] LABS: Albumin 2.8 g/dL (3.4-5.0); Albumin/Globulin Ratio 0.8 (1.1-1.8); Anion Gap 7.9 mEq/L (5.0-15.0); Bilirubin Total 0.6 mg/dL (0.2-1.0); Globulin 3.7 g/dL (2.3-3.5); Potassium 3.9 mEq/L (3.5-5.1); Protein, Total 6.5 g/dL (6.4-8.2)
[2024-08-08] MEDS: LEVOTHYROXINE SOD 0.075 MG TAB PO SCH (09:12)
[2024-08-08] MEDS: ROSUVASTATIN 10 MG TAB PO SCH (09:12)
[2024-08-08] MEDS: ASPIRIN 81 MG CHEWABLE TABLET PO SCH (09:13)
[2024-08-08] MEDS: POTASSIUM CL SA 10 MEQ TAB PO ONE (09:13)
[2024-08-08] MEDS: CLOPIDOGREL 75 MG TABLET PO SCH (09:13)
[2024-08-08] MEDS: FINASTERIDE 5 MG TAB PO SCH (09:14)
[2024-08-08] MEDS: PANTOPRAZOLE 40MG TABLET PO SCH (09:14)
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
[2024-08-08] MEDS: METOPROLOL XL 25 MG TAB PO ONE (14:37)
[2024-08-08 16:49] VITALS: BP 131/63; TEMP 97.7
--- NOTE | 2024-08-09 10:58 | EKG ---
Test Date: 2024-08-06 Test Time: 10:43:36 Timekeeper Supervisor: HB MEASUREMENT RESULTS: Intervals: Rate: 88 CT: 212 QRSD: 160 QT: 416 QTc: 503 [place]: P: CT: 212 QRS: 150 T: 44 INTERPRETIVE STATEMENTS: Sinus rhythm with 1st degree AV block Right bundle branch block Septal infarct, age undetermined Abnormal ECG Compared to ECG 10/31/2023 14:52:22 Myocardial infarct finding now present Electronically Signed On 08-09-24 10:50:56 CDT by Eitan Benson
--- NOTE | 2024-08-18 13:21 | EKG ---
Test Date: 2024-08-06 Test Time: 11:00:19 Venereal Disease Control Head: HB MEASUREMENT RESULTS: Intervals: Rate: 89 [place]: 226 QRSD: 150 QT: 412 QTc: 501 [place]: P: [place]: 226 QRS: 129 T: 59 INTERPRETIVE STATEMENTS: Sinus rhythm with 1st degree AV block Right bundle branch block Abnormal ECG Compared to ECG 08/06/2024 10:43:36 Myocardial infarct finding no longer present Electronically Signed On 08-18-24 12:55:17 CDT by Eitan Benson
== END 2024-08-08 18:05 | disposition home or self-care (01) | DRG 312 ==
LOC: ER 10:41 → ERHOLD 15:20 → 2ND 18:12 → OBSVTOIN 08-07 18:05
PROVIDERS: ADMIT Hospitalist; ATTEND Hospitalist
DX: I95.1 Orthostatic hypotension (principal); I25.10 Atherosclerotic heart disease of native coronary artery without angina pectoris; E11.9 Type 2 diabetes mellitus without complications; I10 Essential (primary) hypertension; I48.91 Unspecified atrial fibrillation; E03.8 Other specified hypothyroidism; E78.5 Hyperlipidemia, unspecified; N40.0 Benign prostatic hyperplasia without lower urinary tract symptoms; J44.9 Chronic obstructive pulmonary disease, unspecified; I25.2 Old myocardial infarction; Z95.0 Presence of cardiac pacemaker; Z95.1 Presence of aortocoronary bypass graft; Z87.828 Personal history of other (healed) physical injury and trauma; Z87.891 Personal history of nicotine dependence; Z79.82 Long term (current) use of aspirin; Z79.899 Other long term (current) drug therapy; Z88.8 Allergy status to other drugs, medicaments and biological substances
CPT/HCPCS: 36415; 70450; 71045; 71275; 72100; 72125; 72220; 80048; 80053; 80076; 82947; 83735; 83880; 84439; 84443; 84484; 85025; 85379; 85610; 93005; 99285; G0378; J1644; J7030; J7040; Q9967